=== PATIENT | female | born 2000 | race Hispanic/Latino ===

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

== ENCOUNTER 2020-06-23 01:20 | Inpatient (IN) | payer MEDICAID ==
[~2020-06-23] VITALS: Ht 157.5 cm; Wt 78.0 kg
[2020-06-23] MEDS ORDERED: PREN-196 PO (01:39)
[2020-06-23 01:57] LABS: BILIRUBIN,URINE Negative (NEGATIVE); COLOR,URINE Yellow (YELLOW); GLUCOSE, URINE (UA) Negative (NEGATIVE); KETONES,URINE Negative (NEGATIVE); LEUKOCYTE ESTERASE ,URINE Small (NEGATIVE); NITRATE,URINE Negative (NEGATIVE); OCCULT BLOOD,URINE Moderate (NEGATIVE); PH,URINE 7.5 (5.0-8.0); PROTEIN,URINE POS 1+ mg/dL (NEGATIVE)
[2020-06-23 02:04] LABS: AMPHET/METH SCREEN,URINE NEGATIVE (NEGATIVE); BARBITURATE SCREEN, URINE NEGATIVE (NEGATIVE); BENZODIAZEPINES SCREEN,URINE NEGATIVE (NEGATIVE); CANNABINOID SCREEN,URINE NEGATIVE (NEGATIVE); COCAINE SCREEN,URINE NEGATIVE (NEGATIVE); OPIATE SCREEN,URINE NEGATIVE (NEGATIVE); PHENCYCLIDINE SCREEN,URINE NEGATIVE (NEGATIVE)
[2020-06-23 02:12] VITALS: BP 122/73
[2020-06-23 02:12] LABS: HEMATOCRIT 33.3 % (36-48); MEAN CORPUSCULAR HEMOGLOBIN 28.9 pg (27.0-33.0); MEAN CORPUSCULAR HGB CONC 34.2 g/dL (32.0-36.0); MEAN CORPUSCULAR VOLUME 84.3 fL (80-100); RED BLOOD CELL COUNT(AUTO) 3.95 MIL/uL (4.00-5.50); WHITE BLOOD COUNT (AUTO) 6.9 K/uL (4.8-10.8)
[2020-06-23 02:14] LABS: APPEARANCE,URINE SLIGHTLY CLOUDY (CLEAR)
[2020-06-23] MEDS: LACTATED RINGERS 1000ML 1,000 ML IV SCH ×2 (02:28→05:24)
[2020-06-23 02:29] LABS: BACTERIA,URINE Few /HPF (None Seen)
[2020-06-23] MEDS ORDERED: AMPICILLIN 2GM+NS 100ML 100 ML IV SCH (02:30)
[2020-06-23] MEDS ORDERED: BUTORPHANOL TARTRATE 2 MG/ML ONE (03:56)
[2020-06-23] MEDS ORDERED: BUTORPHANOL TARTRATE 2 MG/ML IVP ONE (04:00)
[2020-06-23] MEDS ORDERED: CEFAZOLIN SODIUM 1 GM VIAL ONE (06:21)
[2020-06-23] MEDS ORDERED: LACTATED RINGERS 1000ML 1,000 ML IV SCH (06:30)
[2020-06-23] MEDS ORDERED: CEFAZOLIN SODIUM 1 GM VIAL IVP PRN (06:30)
[2020-06-23] MEDS ORDERED: AMPICILLIN 1GM+NS 50ML 50 ML IV SCH (06:30)
[2020-06-23] MEDS ORDERED: MORPHINE PF 100MG/10ML AMP IV ONE (08:08)
[2020-06-23] MEDS ORDERED: CEFAZOLIN SODIUM 1 GM VIAL IVP ONE (08:10)
[2020-06-23] MEDS ORDERED: OXYTOCIN 10 USP UNITS/ML ONE (08:26)
[2020-06-23] MEDS ORDERED: ESMOLOL HCL 10 MG/ML 10 ML VIAL ONE (08:33)
[2020-06-23] MEDS ORDERED: ONDANSETRON 4MG INJ ONE (08:38)
[2020-06-23 08:51] LABS: RAPID PLASMA REAGIN NONREACTIVE (NONREACTIVE)
[2020-06-23] MEDS ORDERED: MEPERIDINE-PF 25 MG/ML SYG ONE (09:03)
[2020-06-23] MEDS ORDERED: CALDOLOR 800MG+NS 250ML 250 ML IV ONE (09:14)
[2020-06-23] MEDS ORDERED: 0.9%NACL 10ML VIAL IVP PRN (09:15)
[2020-06-23] MEDS ORDERED: USP IV PRN (09:15)
[2020-06-23] MEDS ORDERED: OXYTOCIN-LR 20 UNITS/1000 ML 1,000 ML IV PRN (09:15)
[2020-06-23] MEDS ORDERED: OXYTOCIN IV PRN (09:15)
[2020-06-23] MEDS ORDERED: MEPERIDINE-PF 75 MG/ML SYG IM PRN (09:15)
[2020-06-23] MEDS ORDERED: LACTATED RINGERS IV PRN (09:15)
[2020-06-23] MEDS ORDERED: PROMETHAZINE HCL 25 MG/ML 1ML AMPULE IM PRN (09:15)
[2020-06-23] MEDS ORDERED: DEXTROSE 5% IV PRN (09:15)
[2020-06-23] MEDS ORDERED: OXYTOCIN-LR 20 UNITS/1000 ML 1,000 ML IV SCH (09:30)
[2020-06-23] MEDS ORDERED: MORPHINE 2 MG SYG IVP PRN (10:15)
[2020-06-23] MEDS ORDERED: NALOXONE HCL 0.4 MG/1 ML ML IVP PRN ×3 (10:15)
[2020-06-23] MEDS ORDERED: ONDANSETRON 4MG INJ IVP PRN (10:15)
[2020-06-23] MEDS ORDERED: CALDOLOR 800MG+NS 250ML 250 ML IV PRN (10:15)
[2020-06-23] MEDS ORDERED: KETOROLAC 30MG VIAL (30MG/ML) IV PRN (10:15)
[2020-06-23] MEDS ORDERED: DiphenhydrAMINE HCL 50 MG/ML VIAL IVP PRN (10:15)
[2020-06-23] MEDS ORDERED: MEPERIDINE-PF 25 MG/ML SYG IV PRN (10:15)
[2020-06-23 10:51] VITALS: BP 113/67
[2020-06-23 16:53] VITALS: BP 122/67
[2020-06-23] MEDS: CALDOLOR 800MG+NS 250ML 250 ML IV SCH (17:15)
[2020-06-23] MEDS: DEXTROSE 5 %-0.45 % NACL 1,000 ML IV PRN (18:34)
[2020-06-23 19:45] VITALS: BP 113/69
[2020-06-24 00:25] VITALS: BP 106/64
[2020-06-24] MEDS: CALDOLOR 800MG+NS 250ML 250 ML IV SCH (01:12)
[2020-06-24] MEDS: DEXTROSE 5 %-0.45 % NACL 1,000 ML IV PRN (01:16)
[2020-06-24 04:20] VITALS: BP 110/54
[2020-06-24] MEDS ORDERED: ACETAMINOPHEN 500 MG TABLET PO PRN (05:00)
[2020-06-24] MEDS ORDERED: BISACODYL 10 MG SUPP.RECT RC PRN (05:00)
[2020-06-24] MEDS ORDERED: LANOLIN 30GM OINTMENT TP PRN (05:00)
[2020-06-24] MEDS ORDERED: IBUPROFEN 600 MG TABLET PO PRN (05:00)
[2020-06-24] MEDS ORDERED: ACETAMINOPHEN WITH CODEINE 1 TAB TAB PO PRN (05:00)
[2020-06-24] MEDS ORDERED: HYDROCODONE/ACETAMINOPHEN 5/325 MG TAB PO PRN (05:00)
[2020-06-24] MEDS ORDERED: MEASLES/MUMPS/RUBELLA VACCINE, LIVE 0.5 ML/VIAL SQ SCH (06:00)
[2020-06-24 06:37] LABS: HEMATOCRIT 25.2 % (36-48); MEAN CORPUSCULAR HEMOGLOBIN 28.5 pg (27.0-33.0); MEAN CORPUSCULAR HGB CONC 33.3 g/dL (32.0-36.0); MEAN CORPUSCULAR VOLUME 85.4 fL (80-100); RED BLOOD CELL COUNT(AUTO) 2.95 MIL/uL (4.00-5.50); RED CELL DISTRIBUTION WIDTH 12.1 % (11.0-15.5); WHITE BLOOD COUNT (AUTO) 8.7 K/uL (4.8-10.8)
[2020-06-24 07:18] VITALS: BP 106/67
[2020-06-24 07:20] LABS: HEPATITIS Bs ANTIGEN SCREEN P Negative (Negative)
[2020-06-24] MEDS ORDERED: DOCUSATE SODIUM 100 MG CAP PO SCH (09:00)
[2020-06-24] MEDS: SIMETHICONE 80 MG TAB.CHEW PO PRN ×2 (09:02→11:43)
[2020-06-24 11:42] VITALS: BP 109/64
== END 2020-06-24 12:50 | disposition home or self-care (01) | DRG 540 ==
LOC: EDH 01:20 → LDH 01:21 → OBSVTOIN 01:21 → WSH 11:00
PROVIDERS: ADMIT Obstetrics & Gynecology; ATTEND Obstetrics & Gynecology
PROC: 10D00Z1 Extraction of Products of Conception, Low, Open Approach (ICD-10-PCS; principal; 2020-06-24)
PROC: 3E0234Z Introduction of Serum, Toxoid and Vaccine into Muscle, Percutaneous Approach (ICD-10-PCS; 2020-06-24)
DX: O76 Abnormality in fetal heart rate and rhythm complicating labor and delivery (principal); O69.81X0 Labor and delivery complicated by cord around neck, without compression, not applicable or unspecified; Z37.0 Single live birth; Z3A.39 39 weeks gestation of pregnancy; Z23 Encounter for immunization
CPT/HCPCS: 36415; 59510; 80305; 81001; 85027; 86592; 86701; 86850; 86900; 86901; 87340; 87390; 90707; A4344; G0378; J0290; J0595; J0690; J1741; J2175; J2274; J2405; J2590; J3490; J7120

== ENCOUNTER 2022-12-10 12:30 | Observation (INO) | payer MEDICAID ==
[~2022-12-10] VITALS: Ht 157.5 cm; Wt 81.6 kg
[~2022-12-10 12:30] MED LIST: PREN-196 PO
[2022-12-10 12:37] VITALS: BP 145/95; PULSE 98; RESP 16; O2SAT 98
[2022-12-10 13:42] LABS: APPEARANCE,URINE CLOUDY (CLEAR); BILIRUBIN,URINE NEGATIVE (NEGATIVE); COLOR,URINE YELLOW (YELLOW); GLUCOSE, URINE (UA) NEGATIVE (NEGATIVE); KETONES,URINE NEGATIVE (NEGATIVE); LEUKOCYTE ESTERASE ,URINE 500 Leu/uL (NEGATIVE); NITRATE,URINE NEGATIVE (NEGATIVE); OCCULT BLOOD,URINE NEGATIVE (NEGATIVE); PROTEIN,URINE 20 mg/dL (NEGATIVE); UROBILINOGEN,URINE 3 mg/dL (0.2-1.0)
[2022-12-10 13:45] LABS: ADD UA MICROSCOPIC YES
[2022-12-10 13:51] LABS: BACTERIA,URINE FEW /HPF (None Seen); MUCUS,URINE RARE LPF (None Seen); RBC,URINE 0-1 /HPF (0-1); SQUAMOUS EPITHELIAL CELL,UR MANY /HPF (0-2)
[2022-12-10 14:01] LABS: AMPHET/METH SCREEN,URINE NEGATIVE (NEGATIVE); BARBITURATE SCREEN, URINE NEGATIVE (NEGATIVE); BENZODIAZEPINES SCREEN,URINE NEGATIVE (NEGATIVE); CANNABINOID SCREEN,URINE NEGATIVE (NEGATIVE); COCAINE SCREEN,URINE NEGATIVE (NEGATIVE); OPIATE SCREEN,URINE NEGATIVE (NEGATIVE); PHENCYCLIDINE SCREEN,URINE NEGATIVE (NEGATIVE)
== END 2022-12-10 15:05 | disposition home or self-care (01) ==
LOC: EDH 12:30 → LDH 12:31 → EDH 12:39
PROVIDERS: ADMIT Obstetrics & Gynecology; ATTEND Obstetrics & Gynecology
DX: O26.893 Other specified pregnancy related conditions, third trimester (principal); R10.2 Pelvic and perineal pain; Z3A.34 34 weeks gestation of pregnancy
CPT/HCPCS: 59025; 80305; 87088; 81001; 76805; G0378 ×2; G0379